=== PATIENT | female | born 1955 | race Caucasian/White ===

== ENCOUNTER 2018-07-02 15:28 | Inpatient (IN) ==
[2018-07-02 17:30] LABS: Basophils # 0.1 10*3/uL (0.0-0.2); Basophils % 0.7 % (0.0-0.8); Eosinophils # 0.1 10*3/uL (0.0-0.87); Hematocrit 44.8 VOL% (35.7-47.0); Hemoglobin 14.8 GM/DL (12.0-16.0); Immature Granulocytes % 0.3 %; Immature Granulocytes Absolute 0.02 #; Lymphocytes # 1.4 10*3/uL (1.4-4.0); Lymphocytes % 20.8 % (21.3-54.2); Mean Corpuscular Hemoglobin 32 PG (27-34); Mean Corpuscular Volume 95.5 FL (87-102); Mean Platelet Volume 10.7 FL (9.6-12.0); Monocytes # 0.6 10*3/uL (0.11-0.8); Monocytes % 8.4 % (1.7-12.7); Neutrophils # 4.7 10*3/uL (1.4-7.4); Neutrophils % 67.8 % (38.7-73.9); Platelet Count 235 T/CUMM (130-400); Red Blood Count 4.69 MC/CUMM (3.8-5.5); Red Cell Distribution Width 12.6 % (9.3-17.3); White Blood Count 6.9 T/CUMM (4-12)
[2018-07-02 17:45] LABS: Alanine Aminotransferase 27 U/L (13-56); Albumin 3.9 G/DL (3.4-5.0); Alkaline Phosphatase 90 U/L (45-117); Aspartate Amino Transferase 16 U/L (0-37); Blood Urea Nitrogen 29 MG/DL (7-18); Calcium 9.3 MG/DL (8.5-10.1); Glucose 85 MG/DL (74-106); Osmolality,Calculated 281.5 MOS/KG (273-304); Sodium 139 MMOL/L (136-145); Total Protein 7.7 G/DL (6.4-8.3); Troponin I < 0.015 NG/ML (0.00-0.045)
[2018-07-02 17:48] LABS: PT Patient Result 10.7 SECS; Partial Thromboplastin Time 24.6 SECS (0-40)
[2018-07-02 17:50] LABS: Apearance,Urine CLEAR (Clear); Bacteria,Urine Occasional /HPF (Few); Bilirubin,Urine Negative (Negative); Blood, Urine Negative (Negative); Glucose,Urine (UA) Negative (Negative); Ketones,Urine 5 mg/dL (Negative); Nitrite,Urine Negative (Negative); Protein,Urine Negative; RBC,Urine 1 /HPF (0-4); Squamous Epithelial Cell,Urine Occasional /HPF (0-10); Urine Color Straw (Yellow); Urine Specific Gravity 1.011 (1.001-1.035); Urine Urobilinogen < 2.0 EU/DL (0.2-1.0); WBC,Urine 1 /HPF (0-6)
[2018-07-02] MEDS ORDERED: ALBUTEROL 2.5 MG/3 ML NEB RESP TX PRN (18:30)
[2018-07-02] MEDS ORDERED: ONDANSETRON 4 MG/2 ML VIAL IV PRN (18:30)
[2018-07-02] MEDS ORDERED: ACETAMINOPHEN 500 MG TABLET PO PRN (18:30)
[2018-07-02] MEDS ORDERED: METOPROLOL TARTRATE 50 MG TABLET PO SCH (21:00)
[2018-07-02] MEDS ORDERED: APIXABAN 5 MG TABLET PO SCH (21:00)
[2018-07-03 06:05] LABS: Troponin I < 0.015 NG/ML (0.00-0.045)
[2018-07-03] MEDS ORDERED: NON-FORMULARY MEDICATION (Albuterol Sulfate [Ventolin Hfa] 2 PUFF) INH PRN (08:48)
[2018-07-03] MEDS ORDERED: REGADENOSON 0.4 MG/5 ML SYRINGE IV ONE (09:52)
[2018-07-03] MEDS ORDERED: ONDANSETRON 4 MG TABLET PO PRN (10:30)
[2018-07-03] MEDS: hydroCHLOROthiazide 12.5 MG CAPSULE PO SCH (12:53)
[2018-07-03] MEDS: amLODIPine 5 MG TABLET PO SCH (12:53)
[2018-07-03] MEDS: OLMESARTAN 20 MG TABLET PO SCH (12:53)
[2018-07-03] MEDS: PANTOPRAZOLE 40 MG TABLET PO SCH (12:53)
[2018-07-03] MEDS: ENOXAPARIN 40 MG/0.4 ML SYRINGE SUBCUT SCH (12:54)
[2018-07-03] MEDS ORDERED: HEPARIN/NACL 0.9% 2 UNITS/ML 1,000 ML IV ONE (15:42)
[2018-07-03] MEDS ORDERED: LIDOCAINE 1% 20 ML VIAL ONE (15:42)
[2018-07-03] MEDS ORDERED: SODIUM BICARBONATE 2.4 MEQ/5 ML VIAL ONE (15:59)
[2018-07-03] MEDS ORDERED: MIDAZOLAM 2 MG/2 ML VIAL ONE ×3 (16:01→16:14)
[2018-07-03] MEDS ORDERED: fentaNYL 100 MCG/2 ML VIAL ONE ×2 (16:01→16:14)
[2018-07-03] MEDS ORDERED: ACETAMINOPHEN 325 MG TABLET PO PRN (16:47)
[2018-07-03] MEDS ORDERED: MORPHINE 4 MG/1 ML VIAL IV PRN (16:47)
[2018-07-03] MEDS ORDERED: ACETAMINOPHEN/CODEINE 300-30 MG TABLET PO PRN (16:47)
[2018-07-03] MEDS ORDERED: ceFAZolin 1,000 MG VIAL IRRIG ONE (16:49)
[2018-07-03] MEDS ORDERED: ceFAZolin 1,000 MG in SYRINGE 1 EACH IV ONE (16:49)
[2018-07-03] MEDS ORDERED: SODIUM CHLORIDE 0.9% 1,000 ML IV SCH (17:00)
[2018-07-04 04:35] LABS: Basophils # 0.1 10*3/uL (0.0-0.2); Basophils % 0.9 % (0.0-0.8); Eosinophils # 0.2 10*3/uL (0.0-0.87); Hematocrit 43.4 VOL% (35.7-47.0); Hemoglobin 14.1 GM/DL (12.0-16.0); Immature Granulocytes % 0.2 %; Immature Granulocytes Absolute 0.01 #; Lymphocytes # 1.2 10*3/uL (1.4-4.0); Lymphocytes % 21.4 % (21.3-54.2); Mean Corpuscular HGB Conc 32.5 GM/DL (32-36); Mean Corpuscular Hemoglobin 31 PG (27-34); Mean Corpuscular Volume 96.2 FL (87-102); Mean Platelet Volume 10.6 FL (9.6-12.0); Monocytes # 0.5 10*3/uL (0.11-0.8); Monocytes % 9.1 % (1.7-12.7); Neutrophils # 3.7 10*3/uL (1.4-7.4); Neutrophils % 65.4 % (38.7-73.9); Platelet Count 204 T/CUMM (130-400); Red Blood Count 4.51 MC/CUMM (3.8-5.5); Red Cell Distribution Width 12.3 % (9.3-17.3); White Blood Count 5.7 T/CUMM (4-12)
[2018-07-04 04:55] LABS: Calcium 8.6 MG/DL (8.5-10.1)
[2018-07-04 04:56] LABS: Calcium 8.8 MG/DL (8.5-10.1); Potassium 3.7 MMOL/L (3.5-5.1)
[2018-07-04] MEDS ORDERED: ceFAZolin 1,000 MG in SYRINGE 1 EACH IV ONE (09:00)
[2018-07-04] MEDS ORDERED: ceFAZolin 1,000 MG VIAL IRRIG ONE (09:00)
[2018-07-04] MEDS: ENOXAPARIN 40 MG/0.4 ML SYRINGE SUBCUT SCH (10:11)
[2018-07-04] MEDS: OLMESARTAN 20 MG TABLET PO SCH (10:33)
[2018-07-04] MEDS: hydroCHLOROthiazide 12.5 MG CAPSULE PO SCH (10:33)
[2018-07-04] MEDS: PANTOPRAZOLE 40 MG TABLET PO SCH (10:34)
[2018-07-04] MEDS: amLODIPine 5 MG TABLET PO SCH (10:34)
[2018-07-04] MEDS ORDERED: HEPARIN/NACL 0.9% 2 UNITS/ML 500 ML IV ONE (14:54)
[2018-07-04] MEDS ORDERED: MIDAZOLAM 2 MG/2 ML VIAL ONE ×2 (14:54→15:20)
[2018-07-04] MEDS ORDERED: fentaNYL 100 MCG/2 ML VIAL ONE ×2 (14:55→15:20)
[2018-07-04] MEDS ORDERED: LIDOCAINE 1% 20 ML VIAL ONE (15:22)
[2018-07-04] MEDS ORDERED: TISSUE ADHESIVE 1 EACH APPLICATOR TOP ONE (15:38)
[2018-07-04] MEDS: oxyCODONE/ACETAMINOPHEN 5-325 MG TABLET PO PRN ×2 (17:07→22:11)
[2018-07-04] MEDS: METOPROLOL SUCCINATE XL 50 MG TABLET PO SCH (21:14)
[2018-07-04] MEDS: ceFAZolin 1,000 MG in SYRINGE 1 EACH IV SCH (22:13)
[2018-07-05 04:44] LABS: Basophils % 0.6 % (0.0-0.8); Eosinophils # 0.2 10*3/uL (0.0-0.87); Eosinophils % 2.9 % (0.00-10.9); Hematocrit 45.2 VOL% (35.7-47.0); Hemoglobin 14.7 GM/DL (12.0-16.0); Immature Granulocytes % 0.3 %; Immature Granulocytes Absolute 0.02 #; Lymphocytes # 1.2 10*3/uL (1.4-4.0); Lymphocytes % 17.9 % (21.3-54.2); Mean Corpuscular HGB Conc 32.5 GM/DL (32-36); Mean Corpuscular Hemoglobin 31 PG (27-34); Mean Corpuscular Volume 96.2 FL (87-102); Mean Platelet Volume 10.7 FL (9.6-12.0); Monocytes # 0.7 10*3/uL (0.11-0.8); Monocytes % 9.9 % (1.7-12.7); Neutrophils # 4.5 10*3/uL (1.4-7.4); Neutrophils % 68.4 % (38.7-73.9); Platelet Count 181 T/CUMM (130-400); Red Cell Distribution Width 12.4 % (9.3-17.3); White Blood Count 6.6 T/CUMM (4-12)
[2018-07-05 05:06] LABS: Calcium 8.9 MG/DL (8.5-10.1); Osmolality,Calculated 280.4 MOS/KG (273-304); Potassium 3.5 MMOL/L (3.5-5.1)
[2018-07-05] MEDS: ceFAZolin 1,000 MG in SYRINGE 1 EACH IV SCH (06:10)
[2018-07-05] MEDS: hydroCHLOROthiazide 12.5 MG CAPSULE PO SCH (09:18)
[2018-07-05] MEDS: OLMESARTAN 20 MG TABLET PO SCH (09:18)
[2018-07-05] MEDS: PANTOPRAZOLE 40 MG TABLET PO SCH (09:18)
[2018-07-05] MEDS: amLODIPine 5 MG TABLET PO SCH (09:18)
[2018-07-05] MEDS: METOPROLOL SUCCINATE XL 50 MG TABLET PO SCH (09:18)
[2018-07-05] MEDS: oxyCODONE/ACETAMINOPHEN 5-325 MG TABLET PO PRN (09:19)
[2018-07-05] MEDS ORDERED: PNEUMOCOCCAL VACCINE (13 VALENT) 0.5 ML SYRINGE IM ONE (11:57)
[2018-07-05 13:29] VITALS: BP 131/60
== END 2018-07-05 13:50 | disposition home or self-care (01) | DRG 243 ==
LOC: N.ED 15:28 → N.EDINP 18:29 → N.TELES 19:37
PROVIDERS: ADMIT Internal Medicine Clinical Cardiac Electrophysiology; ATTEND Internal Medicine Clinical Cardiac Electrophysiology
PROC: CLCCHCL (ICD-10-PCS; 2018-07-03 16:45)

== ENCOUNTER 2020-06-16 13:06 | Observation (INO) ==
[2020-06-16 09:00] LABS: Basophils # 0.1 10*3/uL (0.0-0.2); Basophils % 0.9 % (0.0-0.8); Eosinophils # 0.3 10*3/uL (0.0-0.87); Eosinophils % 4.3 % (0.00-10.9); Hematocrit 44.1 VOL% (35.7-47.0); Hemoglobin 14.8 GM/DL (12.0-16.0); Immature Granulocytes % 0.3 %; Immature Granulocytes Absolute 0.02 #; Lymphocytes # 1.2 10*3/uL (1.4-4.0); Lymphocytes % 20.8 % (21.3-54.2); Mean Corpuscular HGB Conc 33.6 GM/DL (32-36); Mean Corpuscular Volume 94.2 FL (87-102); Mean Platelet Volume 9.4 FL (9.6-12.0); Monocytes % 9.3 % (1.7-12.7); Neutrophils % 64.4 % (38.7-73.9); Platelet Count 242 T/CUMM (130-400); Red Blood Count 4.68 MC/CUMM (3.8-5.5); Red Cell Distribution Width 12.4 % (9.3-17.3); White Blood Count 5.8 T/CUMM (4-12)
[2020-06-16] MEDS: FLECAINIDE 50 MG TABLET PO SCH ×2 (09:33→20:47)
[2020-06-16] MEDS: METOPROLOL SUCCINATE XL 50 MG TABLET PO SCH ×2 (09:33→20:47)
[2020-06-16] MEDS: APIXABAN 5 MG TABLET PO SCH ×2 (09:33→20:46)
[2020-06-16] MEDS: PANTOPRAZOLE 40 MG TABLET PO SCH (09:33)
[~2020-06-16 13:06] MED LIST: ALUMINUM/MAGNES/SIMETH MAX STR 30 ML UDCUP PO PRN; BISACODYL 5 MG TABLET PO PRN; MAGNESIUM SULF RIDER 2 GM in PREMIX 1 EACH IV PRN; MAGNESIUM SULF RIDER 4 GM in PREMIX 1 EACH IV PRN; ONDANSETRON 4 MG/2 ML VIAL IV PRN; PNEUMOCOCCAL VACCINE (13 VALENT) 0.5 ML SYRINGE IM ONE; POTASSIUM CHLORIDE 20 MEQ TABLET PO PRN; ZALEPLON 5 MG CAPSULE PO PRN; hydrALAZINE 20 MG/1 ML VIAL IV PRN
[2020-06-16] MEDS: ACETAMINOPHEN 325 MG TABLET PO PRN ×2 (13:07→20:46)
[2020-06-16 14:54] LABS: Albumin 3.3 G/DL (3.4-5.0); Bilirubin,Total 0.8 MG/DL (0.2-1.0); Calcium 8.9 MG/DL (8.5-10.1); Osmolality,Calculated 279.5 MOS/KG (273-304); Potassium 3.6 MMOL/L (3.5-5.1)
[2020-06-16] MEDS: DILTIAZEM CD 120 MG CAPSULE PO SCH (15:01)
[2020-06-16] MEDS ORDERED: POTASSIUM CHLORIDE 20 MEQ TABLET PO ONE (16:04)
[2020-06-17 06:14] LABS: Basophils % 0.8 % (0.0-0.8); Eosinophils # 0.2 10*3/uL (0.0-0.87); Hematocrit 43.4 VOL% (35.7-47.0); Immature Granulocytes % 0.5 %; Immature Granulocytes Absolute 0.02 #; Lymphocytes # 1.3 10*3/uL (1.4-4.0); Lymphocytes % 33.8 % (21.3-54.2); Mean Corpuscular HGB Conc 32.3 GM/DL (32-36); Mean Corpuscular Volume 99.5 FL (87-102); Mean Platelet Volume 9.9 FL (9.6-12.0); Monocytes % 11.8 % (1.7-12.7); Neutrophils % 49.1 % (38.7-73.9); Platelet Count 185 T/CUMM (130-400); Red Blood Count 4.36 MC/CUMM (3.8-5.5); Red Cell Distribution Width 12.4 % (9.3-17.3); White Blood Count 3.7 T/CUMM (4-12)
[2020-06-17 06:26] LABS: Calcium 8.3 MG/DL (8.5-10.1); Osmolality,Calculated 285.1 MOS/KG (273-304); Potassium 4.1 MMOL/L (3.5-5.1)
[2020-06-17] MEDS: hydroCHLOROthiazide 12.5 MG CAPSULE PO SCH (08:41)
[2020-06-17] MEDS: OLMESARTAN 20 MG TABLET PO SCH (08:41)
[2020-06-17] MEDS: FLECAINIDE 50 MG TABLET PO SCH ×2 (08:42→21:53)
[2020-06-17] MEDS: DILTIAZEM CD 120 MG CAPSULE PO SCH (08:42)
[2020-06-17] MEDS: PANTOPRAZOLE 40 MG TABLET PO SCH (08:42)
[2020-06-17] MEDS: amLODIPine 5 MG TABLET PO SCH (08:42)
[2020-06-17] MEDS: APIXABAN 5 MG TABLET PO SCH ×2 (08:42→21:54)
[2020-06-17] MEDS: METOPROLOL SUCCINATE XL 50 MG TABLET PO SCH ×2 (08:42→21:54)
[2020-06-18 06:08] LABS: Basophils # 0.1 10*3/uL (0.0-0.2); Eosinophils # 0.2 10*3/uL (0.0-0.87); Eosinophils % 4.3 % (0.00-10.9); Hematocrit 41.9 VOL% (35.7-47.0); Hemoglobin 13.9 GM/DL (12.0-16.0); Immature Granulocytes % 0.2 %; Immature Granulocytes Absolute 0.01 #; Lymphocytes # 1.2 10*3/uL (1.4-4.0); Lymphocytes % 23.9 % (21.3-54.2); Mean Corpuscular HGB Conc 33.2 GM/DL (32-36); Mean Corpuscular Volume 95.2 FL (87-102); Mean Platelet Volume 9.9 FL (9.6-12.0); Monocytes % 11.6 % (1.7-12.7); Platelet Count 217 T/CUMM (130-400); Red Cell Distribution Width 12.3 % (9.3-17.3); White Blood Count 5.1 T/CUMM (4-12)
[2020-06-18 06:25] LABS: Calcium 8.4 MG/DL (8.5-10.1); Osmolality,Calculated 283.4 MOS/KG (273-304)
[2020-06-18 08:07] VITALS: BP 130/72
[2020-06-18] MEDS: FLECAINIDE 50 MG TABLET PO SCH (08:32)
[2020-06-18] MEDS: amLODIPine 5 MG TABLET PO SCH (08:32)
[2020-06-18] MEDS: hydroCHLOROthiazide 12.5 MG CAPSULE PO SCH (08:33)
[2020-06-18] MEDS: DILTIAZEM CD 120 MG CAPSULE PO SCH (08:33)
[2020-06-18] MEDS: OLMESARTAN 20 MG TABLET PO SCH (08:33)
[2020-06-18] MEDS: METOPROLOL SUCCINATE XL 50 MG TABLET PO SCH (08:33)
[2020-06-18] MEDS: APIXABAN 5 MG TABLET PO SCH (08:33)
[2020-06-18] MEDS: PANTOPRAZOLE 40 MG TABLET PO SCH (08:34)
== END 2020-06-18 10:30 | disposition home or self-care (01) ==
LOC: N.TELES
PROVIDERS: ADMIT Internal Medicine Interventional Cardiology; ATTEND Internal Medicine Interventional Cardiology